=== PATIENT | male | born 1965 | race Caucasian/White ===

== ENCOUNTER 2017-01-08 10:07 | Inpatient (IN) | payer OTHER ==
--- NOTE | 2017-01-07 17:07 | GHP ---
[f rep st] PREOP HISTORY AND PHYSICAL DATE OF ADMISSION: 01/08/2017 PROBLEM: Left hip arthritis. HISTORY OF PRESENT ILLNESS: The patient is a 51-year-old man admitted for left hip [place] hip r esurfacing arthroplasty. He has had progressive pain in the left hip for the past 3 years. He also has known arthritis in his left knee. His hip is painful most days. He has quite a bit of night p ain. His pain is worse with activity. He is using oxycodone at bedtime to help him sleep. He is u sing ibuprofen before and after activities. He has trouble putting on his shoes and socks on the le ft foot. No history of prior hip surgery. He had a cortisone injection 1 year ago with minimal price efit. He has failed nonsurgical treatment. His activities of daily living are significantly limite d. He will undergo a left hip [place] hip resurfacing arthroplasty. PAST MEDICAL HISTORY: Good general health. No history of heart disease, stents, DVT, hepatitis, or sleep apnea. CURRENT MEDICATIONS: He takes an oxycodone at bedtime because of hip pain, shoulder pain, and knee pain. DRUG ALLERGIES: None. METAL ALLERGIES: None. LATEX ALLERGY: None. SOCIAL HISTORY: The patient works as a financial analysis consultant. He does not smoke cigarettes. Occasi onally drinks alcohol. He is . FAMILY HISTORY: Positive for diabetes and high blood pressure. PHYSICAL EXAMINATION: Height 6 feet 2 inches. Weight 235 pounds. HEENT: Eyes: Conjunctivae and sclerae are clear. Pupils are round and reactive. Mouth: Good oral hygiene. No loose teeth. AMRIT ST: Clear. HEART: Regular rhythm. No murmurs. EXTREMITIES: Pertinent findings are limited to h is left hip. He has full hip extension and 90 degrees of flexion. External rotation 20 degrees. I nternal rotation 0 degrees. Abduction 30 degrees. IMAGING: Films show very severe degenerative arthritis of the left hip. He is bone on bone. He larkin s mild cartilage space narrowing in his right hip. Overall, he has excellent quality bone. IMPRESSION ON ADMISSION: 1. Left hip advanced degenerative arthritis. He is prepared for a left hip [place] hip resurfac ing arthroplasty. 2. Left knee early degenerative arthritis. 3. Right hip mild degenerative arthritis which is not symptomatic. He will undergo a left hip Jessica hip resurfacing arthroplasty. The surgery has been described to him including the risks, complications, expectations, and recovery time. Nonsurgical options hav e been offered. I have discussed with him the risk of femoral neck fracture, dislocation, infection , and sciatic nerve injury. We spent quite a bit of time discussing the controversial issue of meta l on metal bearing surface and elevated metal ions in the blood and the soft tissues around the hip joint. He understands that he is very young for either a total hip replacement or resurfacing and w ill probably require revision surgery in his lifetime. All his questions have been answered, and he consents to surgery. Copy requested to: Dr. Mina Holman [place] /[id number]/MODL
[~2017-01-08 10:07] MED LIST: ACETAMINOPHEN 325 MG TAB PO ONE; CEFAZOLIN 2 GM/DEXTR 100 ML IV ONE; CHLORHEXIDINE GLUC HIBICLENS 118 ML BTL TP ONE; DEXAMETHASONE 4 MG/ML VIAL IVP ONE; FAMOTIDINE 20 MG TAB PO ONE; NS IV ONE; POVIDONE-IODINE 20 ML in SODIUM CL IRRIG SOLUTION 500 ML IRR ONE; ROPI/epiNEPH/KETOROLAC JOINT COCKTAIL IU ONE; TRANEXAMIC ACID IV ONE
[2017-01-08] MEDS ORDERED: ceFAZolin 1 GM/5 ML SYR ONE (10:11)
[2017-01-08] MEDS ORDERED: SKIN ADHESIVE (DERMABOND) 1 EACH TP ONE (10:11)
[2017-01-08] MEDS ORDERED: fentaNYL 100 MCG/2 ML INJ ONE (10:15)
[2017-01-08] MEDS ORDERED: PROPOFOL/EMULSION 500 MG/50 ML BOTTLE IV ONE ×3 (10:16→13:06)
[2017-01-08] MEDS ORDERED: DEXAMETHASONE 4 MG/ML VIAL ONE (10:26)
[2017-01-08] MEDS ORDERED: CEFAZOLIN 2 GM/DEXTROSE/100 ML BAG IV ONE (10:27)
[2017-01-08] MEDS ORDERED: ACETAMINOPHEN 325 MG TAB ONE (10:27)
[2017-01-08] MEDS ORDERED: FAMOTIDINE 20 MG TAB ONE (10:27)
[2017-01-08] MEDS ORDERED: LIDOCAINE 1% 5 ML SDV ID PRN (10:38)
[2017-01-08] MEDS ORDERED: LR 1,000 ML IV ONE (10:38)
[2017-01-08] MEDS ORDERED: LIDOCAINE 1% 2 ML INJ ONE (10:56)
[2017-01-08] MEDS ORDERED: MIDAZOLAM 2 MG/2 ML VIAL ONE (12:02)
[2017-01-08] MEDS ORDERED: BUPIVACAINE 0.5% 30 ML SDV ONE (12:03)
[2017-01-08] MEDS ORDERED: PHENYLEPHRINE HCL 100 MCG/ML SYR ONE (13:12)
[2017-01-08] MEDS ORDERED: PROPOFOL 200 MG/20 ML VIAL ONE ×2 (13:29)
--- NOTE | 2017-01-08 14:03 | POSTOPPROG ---
Post Op Note Date of Operation: 01/08/17 Surgeon: Rey Landa Credit Controller: [place]/Foster Anesthesiologist: Nancy Anesthesia: IV Sedation, Spinal Post-op Diagnosis: left hip arthritis Procedure: L BHR Inf/Abcess present in the surg proc area at time of surgery?: No EBL: [id number]
[2017-01-08] MEDS ORDERED: ONDANSETRON 4 MG/2 ML VIAL IVP PRN (14:15)
[2017-01-08] MEDS ORDERED: METOCLOPRAMIDE 10 MG/2 ML VIAL IVP PRN (14:15)
[2017-01-08] MEDS ORDERED: LACTULOSE 20 GM/30 ML UDCUP PO PRN (14:15)
[2017-01-08] MEDS ORDERED: traMADol 50 MG TAB PO PRN (14:15)
[2017-01-08] MEDS ORDERED: PROMETHAZINE HCL 25 MG SUPPR PR PRN (14:15)
[2017-01-08] MEDS ORDERED: CYCLOBENZAPRINE 10 MG TAB PO PRN (14:15)
[2017-01-08] MEDS ORDERED: POLYETHYLENE GLYCOL 3350 17 GM PKT PO PRN (14:15)
[2017-01-08] MEDS ORDERED: NS 500 ML IV PRN (14:15)
[2017-01-08] MEDS ORDERED: TEMAZEPAM 15 MG CAP PO PRN (14:15)
[2017-01-08] MEDS ORDERED: diphenhydrAMINE 25 MG CAP PO PRN (14:15)
[2017-01-08] MEDS ORDERED: BISACODYL 10 MG SUPP PR PRN (14:15)
[2017-01-08] MEDS ORDERED: DIPHENOXYLATE/ATROPINE LOMOTIL 1 TAB PO PRN (14:15)
[2017-01-08] MEDS ORDERED: ONDANSETRON DISINTEGRATING 4 MG TAB PO PRN (14:15)
[2017-01-08] MEDS ORDERED: MAGNESIUM HYDROXIDE 30 ML UDCUP PO PRN (14:15)
[2017-01-08] MEDS ORDERED: PHARMACY PAIN CONSULT 1 EA MISC PRN (14:15)
[2017-01-08] MEDS ORDERED: LR 1,000 ML IV SCH (14:30)
[2017-01-08] MEDS ORDERED: PHENYLEPHRINE HCL 100 MCG/ML SYR IVP ONE (15:00)
--- NOTE | 2017-01-08 15:19 | GOP ---
[f rep st] OPERATIVE REPORT DATE OF OPERATION: 01/08/2017 SURGEON: Rey Landa MD INTERNAL SPECIALIST: Kevni Quintanilla [facility] and Jamie Hutchison, PAC. ANESTHESIA: Combination of Marcaine, spinal and IV sedation. ANESTHESIOLOGIST: Rich Cruz MD. PREOPERATIVE DIAGNOSIS: Left hip severe degenerative arthritis. POSTOPERATIVE DIAGNOSIS: Left hip severe degenerative arthritis. PROCEDURE PERFORMED: Left hip [place] hip resurfacing arthroplasty. FINDINGS: ESTIMATED BLOOD LOSS: About 400 mL. I used a [employer] Jessica hip resurfacing system. The acetabular component was 58 mm in diameter and press-fit. The femoral head was 52 mm and cemented. He was awakened from anesthesia a nd rolled to the supine position on his [facility]. A long-leg compressive stocking and SCD we re applied to the operative leg. He wore a stocking and SCD on the opposite leg during the procedur e. An abduction pillow was placed between his knees. He was taken to PACU in satisfactory conditio n. There were no recognized intraoperative complications. The sponge and needle count were correct on 2 occasions. Kevin Quintanilla and Paramjit Hutchison acted as surgical assistants. Their assistance was a medical adarsh vaca. DESCRIPTION OF PROCEDURE: The patient was given 2 g of IV Ancef preoperatively within 60 minutes of surgery. He also received IV tranexamic acid at a dose of 20 mg/kg. He was placed on the [facility] g room table and given spinal anesthesia with Marcaine by Dr. Cruz. He was then placed supine and given IV sedation. A Harrell catheter was not used. The patient wore a compressive stocking and SCD on the nonoperative leg. He was rolled to the right lateral decubitus position. An axillary roll w as used, and all pressure points were carefully padded. The position was secured with the pegboard table attachment. I was careful to lock his pelvis in a vertical position. His perineum was isolat ed with plastic adhesive drapes. The left hip and left lower extremity were prepped with ChloraPrep . They were draped free using sterile sheets, stockinette, and Ioban plastic drape. The [employer] time-out was performed to verify the correct patient identity and denis ect surgical side. The [place] time-out was also performed. I made a 6-7 inch straight oblique posterolateral hip skin incision. Subcutaneous tissues were deidra ply divided, and hemostasis was obtained using electrocautery. The fascia nancy was identified and s plit along the axis of its fibers. I curved posteriorly and proximally and split the fascia of glut eus navjot and bluntly split the muscle fibers in line with their orientation. His sciatic nerve w as identified and protected throughout the procedure. The Charnley self-retaining retractor was ins erted. The external rotators and the posterior hip capsule were divided as separate layers at the b ase of the femoral neck, tagged and reflected posteriorly. The gluteus navjot tendon was divided a nd tagged in order to improve exposure and release tension on the sciatic nerve. His hip was disloc ated posteriorly. I used a sizing gauge to check the diameter of the neck and concluded that 52 mm was the proper head size. I performed a complete circumferential capsulotomy. I was able to retrac t the femoral head anteriorly and superiorly and hold it out of place with appropriate retractors. The remnant of his damaged labrum was excised. His acetabulum was reamed sequentially up to 58 mm. I selected the Jessica monoblock porous-coated acetabular component with an outside diameter of 58 mm. This was firmly impacted and was a very tight fit. I was careful to determine proper inclin ation and anteversion. I used the transverse acetabular ligament and other acetabular bony landmark s to help me properly orient the cup. He had large anterior and anterior inferior osteophytes which I removed with an osteotome and rongeur. I was careful to leave a lip of bone and capsule extendin g beyond the anterior-inferior lip of the metal cup. I then returned to preparation of the femoral head. Using appropriate jigs and guides, I inserted a guide pin down to the femoral head and neck. I was careful to position in such a way there would b e no notching of the neck. The large sterile metal goniometer was used to check the neck shaft angl e. I reamed over the guide pin and inserted the reaming guide. I then used the cylindrical reamer down to the head and neck junction. This was followed by the flat reamer and the chamfer reamer. T he head was sized for 52 mm. There was no impingement or damage to the neck. He had some moderate- sized anterior neck osteophytes which I removed with a rongeur. I drilled a small hole in the lesse r trochanter and inserted a suction cannula to create negative pressure in the medullary canal. Sma ll holes were drilled on the flattened chamfer surfaces of the prepared head for cement anchors. e head was thoroughly cleaned with the pulsating lavage and carefully dried. I used a CarboJet demarcus ce to blow dry the cancellous surfaces. A single batch of Simplex cement with tobramycin was mixed. At about 50 seconds, I poured the liquid cement into the head component, inserted it onto the femo ral head and impacted it into place. Excess cement was removed before it hardened. The acetabulum was irrigated, cleaned, and inspected, and the hip was reduced. Stability and range of motion were checked. I placed my finger along the anterior aspect of the acetabular component and flexed the hi p 210 degrees. There was no anterior impingement. The suction cannula on the lesser trochanter was removed. The wound was thoroughly irrigated with a dilute Betadine solution. 40 mL of the joint a nesthetic cocktail were injected into the capsule, the deep musculature and the subcutaneous tissues along the skin edges. The sciatic nerve was reinspected and looked unharmed. The external rotators and the posterior hip capsule were repaired in separate layers with #2 FiberWire sutures through drill holes in the greate r trochanter. This provided a strong posterior capsular and external rotator repair. The gluteus m aximus tendon was repaired with 2 interrupted [id number] #2 FiberWire sutures. The fascia nancy was closed first with 2 interrupted [id number] #2 FiberWire sutures, followed by a running #2 barbed Ethicon Stratafix PDO suture. The subcutaneous tissues were closed with a running 0 barbed E thicon Stratafix Monoderm suture. The skin was closed with a running 3-0 barbed Ethicon Stratafix M onoderm subcuticular suture. The skin edges were reapproximated and sealed with Dermabond glue. e wound was covered with a strip of Telfa and everything was held in place with a piece of clear jason stic Tegaderm. Copy requested to: Dr. Mina Holman [place] /[id number]/MODL
[2017-01-08] MEDS: TRANEXAMIC ACID 650 MG TAB PO SCH ×2 (15:54→20:34)
[2017-01-08] MEDS: oxyCODONE IR 5 MG TAB PO PRN ×2 (17:34→20:33)
[2017-01-08] MEDS: ACETAMINOPHEN 325 MG TAB PO SCH ×2 (17:35→23:11)
[2017-01-08] MEDS: ceFAZolin 2 GM/DEXTROSE 100 ML IV SCH (20:34)
[2017-01-08] MEDS: FAMOTIDINE 20 MG TAB PO SCH (20:34)
[2017-01-08] MEDS: KETOROLAC 30 MG/1 ML SDV IVP PRN (20:36)
[2017-01-08] MEDS: ASPIRIN 325 MG TAB PO SCH (20:52)
[2017-01-08] MEDS: SENNOSIDES/DOCUSATE SODIUM TAB PO SCH (22:31)
[2017-01-09 05:25] LABS: HEMATOCRIT 37.5 % (40.0-51.0); HEMOGLOBIN 13.1 g/dL (13.7-17.5)
[2017-01-09] MEDS: ACETAMINOPHEN 325 MG TAB PO SCH (05:30)
[2017-01-09] MEDS: ceFAZolin 2 GM/DEXTROSE 100 ML IV SCH (05:30)
[2017-01-09] MEDS: oxyCODONE IR 5 MG TAB PO PRN ×2 (05:34→08:00)
[2017-01-09] MEDS: TRANEXAMIC ACID 650 MG TAB PO SCH (07:57)
[2017-01-09] MEDS: ASPIRIN 325 MG TAB PO SCH (07:58)
[2017-01-09] MEDS: SENNOSIDES/DOCUSATE SODIUM TAB PO SCH (07:58)
[2017-01-09] MEDS: KETOROLAC 30 MG/1 ML SDV IVP PRN (07:59)
[2017-01-09] MEDS: FAMOTIDINE 20 MG TAB PO SCH (07:59)
[2017-01-09] MEDS ORDERED: FERROUS SULFATE 140 MG TAB.ER PO SCH (09:00)
--- NOTE | 2017-01-09 09:38 | SOAPPROG ---
SOAP Progress Note Assessment/Plan: Assessment: Afebrile. Mild pain. Up and walking. Dsg is dry. Sciatic nerve intact. H/H is good. Plan:Up with PT. DC later today. 01/09/17 09:37 Objective: Vital Signs Temp Pulse Resp BP Pulse Ox 36.7 C 71 14 122/85 H 95 01/09/17 07:21 01/09/17 07:21 01/09/17 07:21 01/09/17 07:21 01/09/17 07:21 Laboratory Results 01/09/17 05:00 01/08/17 01/09/17 01/10/17 05:59 05:59 05:59 Intake Total 2530 400 Output Total 1350 400 Balance 1180 0 ICD10 Worksheet Patient Problems: Problems Problem Status Onset Osteoarthritis of left hip Acute
--- NOTE | 2017-01-09 10:17 | GDS ---
[f rep st] DISCHARGE SUMMARY ADMISSION DIAGNOSIS: Left hip severe degenerative arthritis. DISCHARGE DIAGNOSIS: Left hip severe degenerative arthritis. OPERATIONS PERFORMED: 01/08/2017, a left hip [place] hip resurfacing arthroplasty. POSTOPERATIVE COMPLICATIONS: None. CONDITION ON DISCHARGE: Improved. DESCRIPTION OF HOSPITAL COURSE: The patient was admitted to the hospital on the morning of surgery. His admission CBC was normal. The same day, under a combination of Marcaine, spinal, and IV sedation, he underwent a left hip [place] hip resurfacing arthroplasty. Postoperatively, he was treated with multimodal DVT prophylaxis, including aspirin and early mobilization. On the first postoperative day, his hemoglobin and hematocrit were 13.1 and 37.5. He did not receive any transfused blood. He was seen by Physical Therapy and made excellent progress with ambulation and stairs. By the time of discharge, he was afebrile, and his wound was clean and dry. DISPOSITION: The patient is discharged to a local SNF. He will remain on aspirin 325 mg p.o. daily for 21 days. Use KELLEE stockings for 1 week. He may progress to full weightbearing on the left as tolerated. Use an abduction pillow in bed for 3 weeks. He has prescriptions for oxycodone and tramadol for pain control. I will see him back in the office in 3 weeks. If there are any problems, he is to call me at the office. Copy requested to: Dr. Mina Holman [place] /[id number]/MODL MTDD
[2017-01-09 11:50] VITALS: BP 99/61; PULSE 73; RESP 12; TEMP 98.4; O2SAT 98
== END 2017-01-09 14:18 | DRG 470 ==
LOC: F3N 10:07
PROVIDERS: ADMIT Orthopaedic Surgery; ATTEND Orthopaedic Surgery
PROC: 0SUB0BZ Supplement Left Hip Joint with Resurfacing Device, Open Approach (ICD-10-PCS; principal; 2017-01-08 11:30)
DX: M16.12 Unilateral primary osteoarthritis, left hip (principal); M17.12 Unilateral primary osteoarthritis, left knee
CPT/HCPCS: 97116-GP; 97161-GP; 97165-GO; C1713; C1769; J0171; J0690; J1100; J1885; J2250; J2370; J2704; J2795; J3010